=== PATIENT | male | born 1945 | race Caucasian/White ===

== ENCOUNTER 2017-03-19 18:52 | Inpatient (IN) | payer MEDICARE ==
[~2017-03-19] VITALS: Ht 177.8 cm; Wt 89.8 kg
[2017-03-19] MEDS ORDERED: HYDR-552 PO (19:03)
[2017-03-19] MEDS ORDERED: HYDR12.5 PO (19:03)
[2017-03-19] MEDS ORDERED: AMLO5TAB2 PO (19:03)
--- NOTE | 2017-03-19 19:14 | NUR ---
PT BIB [facility] FOR FEVER STARTED TODAY- LOW GRADE FEVER NOTED LAST NIGHT. PT NOTED LETHARGIC. FEBRILE. OTHER VSS. SEEN BY MD FOR EVAL. IV ACCESS STARTED. BLOOD DRAWN FOR LABS, SENT. SAFETY AND COMFORT MEASURES PROVIDED. WILL MONITOR.
[2017-03-19 19:16] LABS: BASOPHILS % (AUTO) 0.8 % (0.0-2.0); EOSINOPHILS % (AUTO) 0.9 % (0.0-6.0); HEMATOCRIT 46 % (39-51); LYMPHOCYTES # (AUTO) 0.6 /CMM (0.8-4.8); LYMPHOCYTES % (AUTO) 10.9 % (20.0-44.0); MEAN CORPUSCULAR HEMOGLOBIN 29 PG (26.0-33.0); MEAN CORPUSCULAR HGB CONC 33 g/dl (31.0-36.0); MEAN CORPUSCULAR VOLUME 88 fL (80-96); MONOCYTES # (AUTO) 0.9 /CMM (0.1-1.30); MONOCYTES % (AUTO) 17.4 % (2.0-12.0); NEUTROPHILS # (AUTO) 3.7 /CMM (1.8-8.9); PLATELET COUNT (AUTO) 141 /CMM (150-450); RDW COEFFICIENT OF VARIATION 12.8 (11.5-15.0); RED BLOOD CELL COUNT(AUTO) 5.18 MIL/uL (4.5-6.0); WHITE BLOOD COUNT (AUTO) 5.2 K/uL (4.3-11.0)
[2017-03-19 19:26] LABS: CARBON DIOXIDE 26 mmol/L (21-32); CHLORIDE 101 mmol/L (98-107); CREATININE 1.4 mg/dL (0.6-1.3); GLUCOSE 118 mg/dL (74-106); POTASSIUM 3.8 mmol/L (3.5-5.1); SODIUM SERUM 138 mmol/L (136-145); UREA NITROGEN, BLOOD 17 mg/dL (7-18)
[2017-03-19 19:30] LABS: PROTHROMBIN TIME 10.4 SECS (9.5-12.7)
[2017-03-19] MEDS ORDERED: ACETAMINOPHEN ES 500 MG TABLET PO ONE (19:30)
[2017-03-19] MEDS ORDERED: IV NS 0.9% 1,000 ML BAG IV ONE ×2 (19:30)
[2017-03-19] MEDS ORDERED: ACETAMINOPHEN ES 500 MG TABLET ONE (19:30)
[2017-03-19 19:33] LABS: ALANINE AMINOTRANSFERASE 21 U/L (12-78); ALBUMIN 4.3 g/dL (3.4-5.0); ALKALINE PHOSPHATASE 55 U/L (46-116); ASPARTATE AMINOTRANSFERASE 18 U/L (15-37); BILIRUBIN,DIRECT 0.2 mg/dL (0.0-0.2); BILIRUBIN,TOTAL 0.8 mg/dL (0.2-1.0); TOTAL PROTEIN, SERUM 7.3 g/dL (6.4-8.2)
[2017-03-19 19:35] LABS: TROPONIN I 0.208 ng/mL (0.00-0.056)
--- NOTE | 2017-03-19 19:36 | NUR ---
PT MEDICZTED ORDERED.
[2017-03-19 19:46] LABS: APPEARANCE,URINE Clear (CLEAR); BILIRUBIN,URINE Negative (NEGATIVE); BLOOD, URINE Trace-intact Ery/uL (NEGATIVE); COLOR,URINE Yellow (YELLOW); KETONES,URINE Negative (NEGATIVE); LEUKOCYTE ESTERASE ,URINE Negative (NEGATIVE); NITRITE, URINE Negative (NEGATIVE); PROTEIN,URINE 30 mg/dl (NEGATIVE); UGLUCOSE Negative (NEGATIVE); UROBILINOGEN,URINE 0.2 EU/dL (0.2)
[2017-03-19] MEDS ORDERED: AZITHROMYCIN 500 MG in IV D5W 250 ML IV ONE (20:00)
[2017-03-19] MEDS ORDERED: ASPIRIN 325 MG TABLET PO ONE (20:00)
[2017-03-19] MEDS ORDERED: CEFTRIAXONE 1GM BAG (ER ONLY) 50 ML IV ONE ×2 (20:00→20:05)
[2017-03-19 20:03] LABS: BACTERIA,URINE Rare /HPF (None Seen); SQUAMOUS EPITHELIAL CELL,UR Few /HPF (None Seen); WBC,URINE NONE SEEN /HPF (0-3)
[2017-03-19] MEDS ORDERED: AZITHROMYCIN 500 MG VIAL ONE (20:05)
[2017-03-19] MEDS ORDERED: ASPIRIN 325 MG TABLET ONE (20:06)
--- NOTE | 2017-03-19 20:06 | NUR ---
[facility] PAGED, ORTHODONTIST VICE PRESIDENT
--- NOTE | 2017-03-19 20:20 | NUR ---
ER SPOKE TO DR. LOTT REGARDING PT ADMISSION.
--- NOTE | 2017-03-19 20:24 | NUR ---
REPORT CALLED TO EXPANDED DUTY DENTAL ASSISTANTLYNN DELEON. WILL TRANSPORT PT VIA ACLS PROTOCOL.
--- NOTE | 2017-03-19 20:31 | NUR ---
DR. LOTT AT BEDSIDE TO [facility] PT.
[2017-03-19] MEDS ORDERED: IV NS 0.9% 1,000 ML IV PRN (20:47)
[2017-03-19 21:00] VITALS: BP 131/61
[2017-03-19] MEDS ORDERED: Z GUARD REMEDY 2 OZ OINT TP PRN (21:00)
[2017-03-19] MEDS ORDERED: MORPHINE SULFATE INJ 2 MG/ML DISP.SYRIN IV PRN (21:00)
[2017-03-19] MEDS ORDERED: ACETAMINOPHEN 325 MG TABLET PO PRN (21:00)
[2017-03-19] MEDS ORDERED: AMLODIPINE BESYLATE 5 MG TABLET PO SCH (21:00)
[2017-03-19] MEDS ORDERED: MAG HYDROX/AL HYDROX/SIMETH 30 ML UDC PO PRN (21:00)
[2017-03-19] MEDS ORDERED: ONDANSETRON HCL/PF 4 MG/2 ML VIAL IVP PRN (21:00)
[2017-03-19] MEDS ORDERED: ENOXAPARIN SODIUM 40 MG/0.4 ML DISP.SYRIN SQ SCH (21:00)
[2017-03-19] MEDS ORDERED: HYDROCODONE/APAP 5/325MG 1 EACH TABLET PO SCH (21:00)
[2017-03-19] MEDS ORDERED: ZOLPIDEM TARTRATE 5 MG TABLET PO PRN (21:00)
[2017-03-19] MEDS ORDERED: MAGNESIUM HYDROXIDE 30 ML UDC PO PRN (21:00)
--- NOTE | 2017-03-19 21:00 | NUR ---
RN NOTES RECEIVED NEW ADMISSION, WITH DX OF PNA, NSTEMI, ALERT AND ORIENTED X4, ANXIOUS, SPO2 SAT AT ROOM AIR 91%, LUNG SOUNDS TO RIGHT LOWER LOBE IS DIMINISHED. COMPLAINING OF HEADACHE OF 4/10, CLAMMY SKIN. ABDOMEN SOFT AND NON-TENDER, ACTIVE BOWEL SOUNDS, LEFT AC PERIPHERAL LINE IS PATENT AND INFUSING WITH ZITHROMAX, STARTED FROM ER. SKIN ASSESSMENT PERFORMED, NOTED RIGHT LOWER LEG DEFORMITY. HAD RIGHT LEG SX DONE WITH METAL DIVYA. PER DAUGHTER, HAS CHRONIC INFECTION AND BEEN TAKING ANTIBIOTIC ORALLY. NEEDS ATTENDED, PROVIDED BLANKET FOR WARMTH, KEPT HOB ELEVATED, ORIENTED TO ROOM AND USE OF CALL LIGHT, DAUGHTERS AT THE BEDSIDE.
[2017-03-19] MEDS: PANTOPRAZOLE 40 MG VIAL IV SCH (21:47)
[2017-03-19] MEDS: HYDROCODONE/APAP 5/325MG 1 EACH TABLET PO PRN (21:47)
[2017-03-19] MEDS: METOPROLOL TARTRATE 25 MG TABLET PO SCH (22:10)
[2017-03-19 22:13] VITALS: BP 131/61
[2017-03-20] VITALS: BP 110/65
--- NOTE | 2017-03-20 00:22 | NUR ---
RT NOTE PT PLACED ON CPAP PER MD ORDER. SETTINGS PRESCRIBED. ALARMS SET PER PROTOCOL AND AUDIBLLE. AMBU BAG AT BED SIDE. CPAP PLUGGED IN TO RED OUTLET. NO DISTRESS NOTED. PT AWAKE AND ALERT. WILL CONTINUE TO MONITOR. Addendum: 03/20/17 at 0024 by DARLIN VENTURA RT Amended: Links added.
--- NOTE | 2017-03-20 00:49 | NUR ---
RN NOTES PATIENT REMOVED CPAP, PER PATIENT "I CAN'T SLEEP, IT'S NOT COMFORTABLE." REQUESTING AMBIEN, EXPLAINED TO PATIENT HEART RATE GOES DOWN TO MID 40'S. AMBIEN MAY DECREASED HEART RATE
[2017-03-20 04:00] VITALS: BP 129/61
--- NOTE | 2017-03-20 06:10 | NUR ---
RN NOTES PLACED A CALL TO DR. LOTT REGARDING ELEVATED TROPONIN ON 0.230. AWAITING CALL BACK
[2017-03-20 06:27] LABS: BASOPHILS % (AUTO) 0.8 % (0.0-2.0); EOSINOPHILS % (AUTO) 0.8 % (0.0-6.0); HEMATOCRIT 39 % (39-51); HEMOGLOBIN 13.5 g/dL (13.5-17.5); LYMPHOCYTES # (AUTO) 0.8 /CMM (0.8-4.8); LYMPHOCYTES % (AUTO) 18.1 % (20.0-44.0); MEAN CORPUSCULAR HEMOGLOBIN 30 PG (26.0-33.0); MEAN CORPUSCULAR HGB CONC 35 g/dl (31.0-36.0); MEAN CORPUSCULAR VOLUME 87 fL (80-96); MONOCYTES % (AUTO) 21.6 % (2.0-12.0); NEUTROPHILS # (AUTO) 2.6 /CMM (1.8-8.9); NEUTROPHILS % (AUTO) 58.7 % (43.0-81.0); PLATELET COUNT (AUTO) 121 /CMM (150-450); RDW COEFFICIENT OF VARIATION 13.8 (11.5-15.0); RED BLOOD CELL COUNT(AUTO) 4.49 MIL/uL (4.5-6.0); WHITE BLOOD COUNT (AUTO) 4.5 K/uL (4.3-11.0)
[2017-03-20 06:30] VITALS: BP 130/61
[2017-03-20 06:46] LABS: ALANINE AMINOTRANSFERASE 23 U/L (12-78); ALBUMIN 3.5 g/dL (3.4-5.0); ALKALINE PHOSPHATASE 44 U/L (46-116); ASPARTATE AMINOTRANSFERASE 17 U/L (15-37); BILIRUBIN,TOTAL 0.6 mg/dL (0.2-1.0); CALCIUM, SERUM 8.1 mg/dL (8.5-10.1); CARBON DIOXIDE 28 mmol/L (21-32); CHLORIDE 105 mmol/L (98-107); CREATININE 1.1 mg/dL (0.6-1.3); GLUCOSE 101 mg/dL (74-106); MAGNESIUM 1.8 mg/dL (1.8-2.4); POTASSIUM 3.5 mmol/L (3.5-5.1); SODIUM SERUM 140 mmol/L (136-145); TOTAL PROTEIN, SERUM 6.5 g/dL (6.4-8.2); UREA NITROGEN, BLOOD 14 mg/dL (7-18)
--- NOTE | 2017-03-20 06:47 | NUR ---
RN NOTES DR. LOTT MADE AWARE OF ELEVATED TROPONIN, NO NEW ORDER. PATIENT IS ALERT AND AWAKE, NO DISTRESS, NO CHEST PAIN.
--- NOTE | 2017-03-20 06:58 | NUR ---
RN NOTES PATIENT IS AWAKE AND ALERT, NO SOB, ON 2LPM VIA NC, O2 SAT 94%, ANXIOUS, LEFT AC PERIPHERAL LINE IS PATENT. DR. LOTT MADE AWARE OF BRADYCARDIA, NO NEW ORDER. PATIENT HAS NO DISTRESS, NO CHEST PAIN. ALL DUE MEDICATIONS GIVEN, CALL LIGHT WITHIN REACH.
[2017-03-20 07:01] LABS: CHOLESTEROL 106 mg/dL (<200); HDL CHOLESTEROL 33 mg/dL (40-60); LDL 70 mg/dL (0-99); TRIGLYCERIDES 49 mg/dL (30-150)
--- NOTE | 2017-03-20 07:10 | NUR ---
SENIOR OCCUPATIONAL THERAPIST OPENING NOTES RECEIVED PT. FROM NIGHTSHIFT NURSE IN STABLE CONDITION. PT. IS A/O X4. NO SOB OR SIGNS OF DISTRESS NOTED. BREATHING IS EVEN AND UNLABORED. OT. IS ON 2 L O2 VIA NC AND SATING WELL @96%. BREATH SOUNDS CLEAR BILATERALLY UPON AUSCULTATION OF ANTERIOR AND POSTERIOR LUNG GREWAL. PT. REPORTS OF A HEADACHE AT THIS TIME, AND RATES IT A 7/10. WILL ADMINISTER PRN PAIN MEDICATION. IV PRESENT ON LEFT AC 18G PATENT AND INTACT INFUSING NS @ 100ML/HR/ PT. IS TOLERATING INFUSION WELL. NO REDNESS OR SIGNS OF INFILTRATION NOTED. PT. IS SINUS JACK ON THE TELE MONITOR WITH A HR OF 49. BED IN LOW LOCKED POSITION, SIDE RAILS UP X2, CALL LIGHT WITHIN REACH. WILL CONTINUE TO MONITOR.
[2017-03-20 07:37] LABS: BAND % (MANUAL) 2 % (0.0-5.0); EOSINOPHILS % (MANUAL) 3 % (0-4); LYMPHOCYTES % (MANUAL) 15 % (16-48); MONOCYTES % (MANUAL) 20 % (0-11.0); NEUTROPHILS % (MANUAL) 60 (42-76)
[2017-03-20] MEDS: HYDROCODONE/APAP 5/325MG 1 EACH TABLET PO PRN ×2 (07:40→13:53)
[2017-03-20 08:00] VITALS: BP 144/82
[2017-03-20] MEDS ORDERED: ASPIRIN 81 MG TAB.CHEW PO SCH (09:00)
[2017-03-20] MEDS ORDERED: AMLODIPINE BESYLATE 5 MG TABLET PO SCH (09:00)
[2017-03-20] MEDS: PANTOPRAZOLE 40 MG VIAL IV SCH (09:01)
[2017-03-20] MEDS: METOPROLOL TARTRATE 25 MG TABLET PO SCH (09:05)
[2017-03-20] MEDS ORDERED: IOHEXOL-350 100 ML VIAL IV ONE (11:01)
[2017-03-20] MEDS ORDERED: CT SWABBABLE VALVE TRANS SET 1 EA INFUS.SET MC ONE (11:01)
[2017-03-20] MEDS ORDERED: IV NS 0.9% 250 ML IV ONE (11:01)
--- NOTE | 2017-03-20 11:50 | NUR ---
CTA [address] Angiogram. Vitals stable and continued to be monitored. EKG done- SR. Consent for procedure and contrast in chart. Patient education done at bedside and verbalized understanding. Denies any chest pain or shortness of breath. Denies previous reaction or allergy with dye or contrast. See pre procedure date sheet. and daughter at bedside. Patient ate breakfast with coffee. Took am metoprolol and norvasc. Current HR on monitor 48 and normotensive BP. 1204 Nitroglycerin SL given. 1208 CTA done. vitals monitored- see Procedure record on chart. Denies chest pain or SOB. 1215 Back to room by on stable condition. Vitals stable, monitored. at bedside.
[2017-03-20] MEDS ORDERED: NITROGLYCERIN 0.4 MG/TAB BOTTLE ONE (11:52)
--- NOTE | 2017-03-20 11:57 | NUR ---
IMPREGNATOR ELECTROLYTIC CAPACITORS NOTES PT. DOWN FOR CT ANGIOGRAM
[2017-03-20 12:00] VITALS: BP 138/79
[2017-03-20] MEDS ORDERED: SULFAMETH/TRIMETH 800/160 MG 1 UDTAB TABLET PO SCH (12:00)
--- NOTE | 2017-03-20 12:45 | NUR ---
Patient vitals stable, normotensive, SR. No sob or chest pain. Post CTA instruction given and verbalized. Report given to Bedside RN,.
[2017-03-20 16:00] VITALS: BP 141/71
[2017-03-20] MEDS ORDERED: ALPRAZOLAM 0.25 MG TABLET PO PRN (16:00)
--- NOTE | 2017-03-20 16:53 | NUR ---
RESPIRATORY PHYSICIAN D/C NOTE PT. LEFT HOSPITAL IN STABLE CONDITION. ALL NEEDS WERE MET DURING SHIFT AND ORDERS CARRIED OUT ACCORDINGLY. DISCHARGE INSTRUCTIONS WERE DISCUSSED AND EXPLAINED WITH PT. PT. VERBALIZED UNDERSTANDING AND SIGNED ALL REQUIRED DISCHARGE PAPERWORK. BELONGINGS LIST WAS SIGNED BY PT AND HE LEFT WITH ALL BELONGINGS. PT. LEFT FACILITY VIA PRIVATE CAR ESCORTED DOWN BY [place] AND HIS DAUGHTER.
[2017-03-20] MEDS ORDERED: LACTOBACILLUS RHAMNOSUS GG 1 EACH CAP.SPRINK PO SCH (17:00)
[2017-03-20] MEDS ORDERED: CEFTRIAXONE 1 G in IV D5W 50 ML IV SCH (20:00)
[2017-03-20] MEDS ORDERED: AZITHROMYCIN 500 MG in IV D5W 250 ML IV SCH (21:00)
== END 2017-03-20 16:50 | disposition home or self-care (01) | DRG 280 ==
LOC: ER 18:56 → TELE 20:24
PROVIDERS: ADMIT Internal Medicine; ATTEND Internal Medicine
DX: I21.4 Non-ST elevation (NSTEMI) myocardial infarction (principal); N17.0 Acute kidney failure with tubular necrosis; J18.9 Pneumonia, unspecified organism; I10 Essential (primary) hypertension; D69.6 Thrombocytopenia, unspecified; G72.49 Other inflammatory and immune myopathies, not elsewhere classified; Z79.899 Other long term (current) drug therapy; I48.91 Unspecified atrial fibrillation; Z82.3 Family history of stroke; Z86.14 Personal history of Methicillin resistant Staphylococcus aureus infection; Z87.891 Personal history of nicotine dependence; D72.810 Lymphocytopenia
CPT/HCPCS: 36415; 71010-TC; 75574; 80048-TC; 80053-TC; 80061-TC; 80076-TC; 81000-TC; 82550-TC; 82553-TC; 83605-TC; 83735-TC; 84100-TC; 84484-TC; 85025-TC; 85730-TC; 87040-TC; 87081-TC; 87086-TC; 93307-TC; A4606; C9113; J0456; J0696; J1650; J7030; J7050; J7060; Q9967; Z7610

== ENCOUNTER 2017-03-26 10:13 | Outpatient (CLI) | payer MEDICARE ==
[~2017-03-26 10:13] MED LIST: AMLO5TAB2 PO; HYDR-552 PO; HYDR12.5 PO
[2017-03-26] MEDS ORDERED: REGADENOSON 0.4 MG/5 ML DISP.SYRIN IVP ONE (11:00)
== END 2017-03-26 23:59 | disposition home or self-care (01) ==
LOC: RAD 10:13
PROVIDERS: ATTEND Internal Medicine Cardiovascular Disease
DX: I10 Essential (primary) hypertension (principal)
CPT/HCPCS: 78452; A9502; J2785